=== PATIENT | female | born 1960 | race Hispanic/Latino ===

== ENCOUNTER → 2018-07-25 | Day surgery (SDC) | payer BC, MEDICARE ==
[~2018-07-25] MED LIST: Dexamethasone 20 MG/5 ML VIAL ONE; Fentanyl 100 MCG/2 ML VIAL ONE; Labetalol HCl 100 MG/20 ML VIAL ONE; Lorazepam 2 MG/ML VIAL ONE; Midazolam HCl 2 mg/2 ml Vial ONE; Morphine 2 MG/ML SYRINGE ONE; Morphine 4 MG/ML VIAL ONE; Ondansetron PF 4 MG/2 ML Vial ONE; PROPOFOL 200 MG/20 ML VIAL ONE; Succinylcholine Chloride 20 MG/ML 10 ml SYRINGE FS ONE
[2018-07-25 09:58] LABS: #Basophils 0.1 thou/uL (0.0-0.2); #Lymphocytes 2.4 thou/uL (1.20-3.40); #Monocytes 0.6 thou/uL (0.11-0.59); #Neutrophils 4.3 thou/uL (1.40-6.50); %Basophils 1.4 % (0.0-1.0); %Eosinophils 0.2 % (0.0-10.0); %Monocytes 7.7 % (0.0-10.0); %Neutrophils 58.6 % (42.0-75.0); Hemoglobin 16.6 g/dL (12.0-16.0); Mean Corpuscular HGB CONC 34.6 g/dL (32.0-36.0); Mean Corpuscular Hemoglobin 30.6 pg (27.0-31.0); Mean Corpuscular Volume 88.3 fL (78.0-98.0); Mean Platelet Volume 8.1 fL (7.4-10.4); Platelet Count 345 thou/uL (130-400); RBC Distribution Width 11.9 % (11.5-14.5); Red Blood Cell (RBC) Count 5.43 mill/uL (4.20-5.40); White Blood Cell (WBC) Count 7.3 thou/uL (4.8-10.8)
--- NOTE | 2018-07-25 10:08 | RAD ---
PORTABLE CHEST: Indications: Question foreign body in mid esophagus. Comparison: 11-12-15 FINDINGS: The lung carlos are clear. No infiltrate or vascular congestion. Linear stranding in the peripheral l eft lung appears stable. Heart and mediastinum unremarkable. IMPRESSION: No acute process identified. POS: [facility]
[2018-07-25 10:21] LABS: ALT (SGPT) 26 U/L (8-55); AST (SGOT) 29 U/L (5-34); Albumin 4.6 g/dL (3.5-5.0); Alkaline Phosphatase 106 U/L (40-150); Anion Gap 18 mmol/L (10-20); BUN (Urea Nitrogen) 9 mg/dL (9.8-20.1); Calc. Creatinine Clearance 0 mL/min (70-130); Calcium 9.9 mg/dL (7.8-10.44); Carbon Dioxide 20 mmol/L (22-29); Chloride 105 mmol/L (98-107); Estimated GFR-MDRD 71; Globulin 3.4 g/dL (2.4-3.5); Glucose 133 mg/dL (70-105); Potassium 3.6 mmol/L (3.5-5.1); Sodium 139 mmol/L (136-145)
--- NOTE | 2018-07-25 10:52 | HP ---
DATE OF CONSULTATION: 07/25/2018 REASON FOR CONSULTATION: Esophageal food bolus obstruction. HISTORY OF PRESENT ILLNESS: Gala Pate is a 57-year-old obese woman, previously seen by my colleague, Dr. Jossue Lopez. She has a history of distal esophageal stricture and multiple esophageal dilations in the past. Her last EGD was in November of 2015. She recently presented with food bolus obstruction. Followup EGD demonstrated mild benign stricture in the distal esophagus, which Dr. Lopez dilated to 18 mm. The patient states that she has been tried on multiple PPIs in the past, which did not have any efficacy and then was tried on Gaviscon for a while, but stopped that as well, so she is not on any acid suppression or heartburn medications. She says she has had progressive dysphagia for a long time. She has just been dealing with it trying to chew her food slowly, but yesterday about 5:30 p.m., which was 17 hours ago, she was eating some chicken and did not chew it enough. She feels as if the food is stuck in her mid chest. It is quite uncomfortable for her, but she is tolerating her secretions. She is quite anxious and is going to be getting some Ativan in the ER. She is hypertensive as well. No other abdominal complaints. PAST MEDICAL HISTORY: Esophageal strictures with dilation, fibromyalgia, lupus, osteoarthritis, rheumatoid arthritis, x5, hysterectomy, appendectomy, and orthopedic surgery. ALLERGIES: NO KNOWN DRUG ALLERGIES. MEDICATIONS: 1. Lorazepam. 2. Gabapentin. 3. Sulfasalazine. 4. Methotrexate. 5. Dulcolax. 6. Cyclobenzaprine. 7. Tizanidine. 8. Sertraline. REVIEW OF SYSTEMS: Full review of systems including constitutional, head, eyes, ears, nose, throat, GI, , cardiovascular, respiratory, musculoskeletal, and neurologic systems are negative except as noted in the HPI. PHYSICAL EXAMINATION: VITAL SIGNS: Blood pressure 190/141, pulse 117, and 95% oxygen saturation on room air. GENERAL: Anxious, obese 57-year-old woman, sitting up in bed, in mild distress from chest discomfort. SKIN: No jaundice. No rashes were palpable. EYES: No scleral icterus. Extraocular movements intact. ENT: Mucous membranes moist. No oral lesions. LYMPH: No submandibular or supraclavicular lymphadenopathy. THYROID: Nontender to palpation. HEART: Regular. Tachycardia. LUNGS: Clear to auscultation bilaterally. ABDOMEN: Obese. Bowel sounds present. Soft and nontender to palpation. EXTREMITIES: No peripheral edema. IMAGING AND LABORATORY STUDIES: Laboratory studies, none. Imaging studies, chest x-ray was performed, which demonstrates no acute process. ASSESSMENT AND PLAN: 1. Esophageal food bolus obstruction. 2. Chronic dysphagia. 3. History of esophageal stricture with prior dilations. This presentation is similar to her prior presentations of esophageal food bolus obstruction. We will plan to proceed with esophagogastroduodenoscopy later today. She is going to be getting some anxiety medicine in the meantime. Depending on findings, we are likely going to need to get her back on acid suppression and she will probably need followup esophagogastroduodenoscopy for esophageal dilation in the near future. Anticipate the patient will probably be able to be discharged home following the procedure. Job ID: [id number]
--- NOTE | 2018-07-25 16:31 | OP ---
DATE OF PROCEDURE: 07/25/2018 PHYSICIAN OFFICE NURSE SURGEON: None. PROCEDURE PERFORMED: EGD with foreign body removal. INDICATION: Esophageal food bolus impaction. The patient has a history of prior food bolus impactions with distal esophageal stricture and multiple dilations in the past. She has been off all acid suppression therapy for some time. MEDICATIONS: See Anesthesia record. FINDINGS: After discussion of the risks, benefits, and alternatives of the procedure, informed consent was obtained and witnessed. Preendoscopic cardiopulmonary examination was satisfactory. Time-out was performed before sedation was achieved. Sedation was achieved with Anesthesia assistance in the endoscopy unit. The patient was endotracheally intubated for airway protection. A Pentax adult upper endoscope was placed into the oropharynx and passed through the cricopharyngeus under direct visualization. The proximal esophageal mucosa appeared normal. In the mid esophagus at 25 cm from the incisors, I encountered a large food bolus, which was impacted. This appeared to be chicken, but there are also fragments of corn within the food bolus. This was quite large and quite tightly impacted. Initial attempts to pass a [place] Net around the food bolus were unsuccessful. Attempts at grabbing it with the four pronged graspers were also unsuccessful. I resorted to using the rat-tooth forceps and quite tediously debulking this large food bolus piece by small piece over the course of over 90 minutes. Eventually I was able to debulk the food bolus to the point where it slid down the remainder of the esophagus and into the stomach and in this way the food bolus was cleared. There was severe maceration in the distal esophagus, particularly from 25-30 cm, but also esophagitis beyond this to the GE junction at 40 cm from the incisors. There is diffuse erosive disease and some evidence of fibrosis, though no discrete stricture visualized. Examination of the stomach was normal. Examination of the first and second portions of the duodenum was normal. At this point the upper endoscope was completely withdrawn and the patient allowed to recover. The patient tolerated the procedure well. There were no immediate postprocedure complications. IMPRESSION: 1. Esophageal food bolus of 25-30 cm, now removed. 2. Severe esophagitis with maceration from 25-40 cm. 3. Normal stomach. 4. Normal duodenum. RECOMMENDATION: 1. Liquid diet for the next 2 days, then slowly advance to mechanical soft diet. 2. Chew food thoroughly. 3. Prevacid SoluTab 30 mg twice daily. 4. Follow up in the [facility] with Dr. Lopez or his physician ict sales assistant in the next 2 weeks. Job ID: [id number]
--- NOTE | 2018-07-25 17:54 | RAD ---
AP VIEW CHEST: 07/25/18 HISTORY: Postoperative esophageal pain. AP view chest is obtained on 07/25/18. Comparison made to previous exam from 07/25/18. AP view chest demonstrates the lungs to be well aerated. No evidence of active intrathoracic disease seen. No evidence of effusions, pneumonia or pneumothorax seen. IMPRESSION: Unremarkable AP view chest. POS: [facility]
--- NOTE | 2018-08-01 19:08 | EKG ---
Test Reason : Blood Pressure : / mmHG Vent. Rate : 119 BPM Atrial Rate : 119 BPM P-R Int : 124 ms QRS Dur : 072 ms QT Int : 334 ms P-R-T Axes : 030 014 038 degrees QTc Int : 469 ms Sinus tachycardia Abnormal ECG Confirmed by ANDRE ÁLVAREZ D.O. ([id number]), editor managing newspaper JAMAAL CHOWDHURY ([id number]) on 08/01/2018 7:07:45 PM Referred By: Confirmed By:ANDRE ÁLVAREZ D.O.
== END ==
LOC: ERS 09:05 → SDC 12:04 → ERS 12:14
PROVIDERS: ATTEND Internal Medicine
PROC: 0DC58ZZ Extirpation of Matter from Esophagus, Via Natural or Artificial Opening Endoscopic (ICD-10-PCS; principal; 2018-07-25)
DX: T18.128A Food in esophagus causing other injury, initial encounter (principal); K22.10 Ulcer of esophagus without bleeding; M79.7 Fibromyalgia; M06.9 Rheumatoid arthritis, unspecified; F41.9 Anxiety disorder, unspecified; F32.9 Major depressive disorder, single episode, unspecified; E66.9 Obesity, unspecified; Z79.899 Other long term (current) drug therapy; Z98.890 Other specified postprocedural states
CPT/HCPCS: 71045; 80053; 84484; 85025; 93005; 96374; 96375; J1100; J2060; J2250; J2270; J2405; J2704; J3010

== ENCOUNTER 2018-09-09 12:31 | Day surgery (SDC) | payer BC, MEDICARE ==
[2018-09-08 11:58] VITALS: BMI 50.4
[2018-09-09] MEDS ORDERED: PROPOFOL 200 MG/20 ML VIAL ONE (12:59)
[2018-09-09] MEDS ORDERED: Ondansetron PF 4 MG/2 ML Vial ONE ×2 (12:59→15:59)
[2018-09-09] MEDS ORDERED: MD-Gastroview 120 ML BOT ONE (14:44)
[2018-09-09] MEDS ORDERED: GASTROGRAFIN 30 ML BOT ONE (14:44)
[2018-09-09] MEDS ORDERED: Midazolam HCl 2 mg/2 ml Vial ONE ×2 (15:07→16:54)
[2018-09-09] MEDS ORDERED: Morphine 4 MG/ML VIAL ONE ×2 (16:01→16:12)
--- NOTE | 2018-09-09 16:30 | RAD ---
Exam: Abdomen one view HISTORY: severe abdominal pain, status post EGD line findings: Limited evaluation for pneumoperitoneu m on this supine projection. There is concern, consider upright radiographs. Bowel gas pattern is nonspecific. Air-filled nondistended, nondilated loops of small bowel and colon. IMPRESSION: No evidence of pneumoperitoneum on supine projection. If there is concern for free air, u pright imaging is recommended. CODE T
--- NOTE | 2018-09-09 17:01 | RAD ---
Exam: Barium swallow/esophagus: HISTORY: Severe abdominal pain status post EGD. Patient was given Gastrografin orally. No evidence for mass or ulcer. No evidence for contrast extrav asation or obstruction. IMPRESSION: No evidence for contrast extravasation or obstruction..
[2018-09-09] MEDS ORDERED: Morphine 2 MG/ML SYRINGE ONE ×2 (17:32→18:20)
[2018-09-09] MEDS ORDERED: Labetalol HCl 100 MG/20 ML VIAL ONE (17:35)
[2018-09-09] MEDS ORDERED: hydrALAZINE 20 MG/ML VIAL ONE (18:21)
--- NOTE | 2018-09-09 22:12 | OP ---
DATE OF PROCEDURE: 09/09/2018 PROCEDURE PERFORMED: Esophagogastroduodenoscopy with balloon dilatation and biopsy. PREMEDICATION: Given by Anesthesiology Department. PREPROCEDURE DIAGNOSIS: Dysphagia with recent food impaction. POSTPROCEDURE DIAGNOSIS: 1. Longitudinal furrows and circular rings involved the entire esophagus, suspicious for eosinophilic esophagitis. 2. Distal esophageal ring. 3. Normal stomach and duodenum. PROCEDURE IN DETAIL: Written consents were obtained prior to procedure. After adequate sedation, forward-viewing endoscope was advanced down the stomach under direct vision to the same portion of the duodenum. The duodenum and the bulb appeared normal. Pylorus is patent. The gastric antrum, body, fundus, and cardia all appeared normal. GE junction is noted at 40 cm. A circular ring was noted in the distal esophagus above the GE junction. In the esophagus, multiple longitudinal furrows and circular rings were noted. There was no exudates or white plaques noted. The lower esophagus was dilated with an 18 mm balloon. There was no mucosal disruption of bleeding noted. Multiple biopsies were obtained from the lower and upper esophagus. The patient tolerated the procedure well without any complication. ASSESSMENT: 1. Longitudinal furrows and circular rings in the esophagus, suspect eosinophilic esophagitis. 2. Lower esophageal ring, status post balloon dilatation to 18 mm. 3. Normal stomach and duodenum. PLAN: 1. Await biopsy results. 2. Continue pantoprazole 40 mg twice a day. Job ID: [id number]
[2018-09-10] MEDS ORDERED: Bupivacaine/Epinephrine 0.25% 30 ML VIAL ONE (07:55)
== END 2018-09-09 19:02 | disposition home or self-care (01) ==
LOC: SDC 12:31
PROVIDERS: ATTEND Internal Medicine Gastroenterology
PROC: 0DB38ZX Excision of Lower Esophagus, Via Natural or Artificial Opening Endoscopic, Diagnostic (ICD-10-PCS; principal; 2018-09-09)
PROC: 0D738ZZ Dilation of Lower Esophagus, Via Natural or Artificial Opening Endoscopic (ICD-10-PCS; principal; 2018-09-09)
PROC: 0DB18ZX Excision of Upper Esophagus, Via Natural or Artificial Opening Endoscopic, Diagnostic (ICD-10-PCS; principal; 2018-09-09)
DX: K22.2 Esophageal obstruction (principal); K21.0 Gastro-esophageal reflux disease with esophagitis; Z79.52 Long term (current) use of systemic steroids; Z79.899 Other long term (current) drug therapy; Z98.890 Other specified postprocedural states
CPT/HCPCS: 74018; 74220; 88305; 88312; 88313; 93005; 93010; J0360; J2250; J2270; J2405; Q9963

== ENCOUNTER 2019-06-29 11:52 | Outpatient (CLI) | payer BC, MEDICARE ==
--- NOTE | 2019-06-29 12:28 | RAD ---
Lumbar spine 3 views flexion and extension HISTORY: Low back pain. FINDINGS: Vertebral body heights and alignment are maintained. Osteophytosis of the lower facets. The re is limited movement change in alignment from flexion to extension with no abnormal translational motion. IMPRESSION: Mild degenerative changes lower lumbar spine.
--- NOTE | 2019-06-29 12:30 | RAD ---
Cervical spine 3 views flexion and extension HISTORY: Neck pain. FINDINGS: There is straightening of the normal lordotic curvature. Vertebral body heights are maintai lencho. Mild disc space narrowing at the C5-6 and C6-7 levels where osteophytosis is also most pronounced. Upon flexion, minimal spondylolisthesis (2 mm) occurs at the C3-4 level. No abnormalities on the exte nsion view. IMPRESSION: Degenerative changes cervical spine as detailed above.
== END 2019-06-29 11:53 | disposition home or self-care (01) ==
LOC: RAD 11:52
PROVIDERS: ATTEND Nurse Practitioner Family
DX: M54.2 Cervicalgia (principal); M54.5 Low back pain; M47.812 Spondylosis without myelopathy or radiculopathy, cervical region; M47.816 Spondylosis without myelopathy or radiculopathy, lumbar region
CPT/HCPCS: 72040; 72100

== ENCOUNTER 2019-12-04 09:34 | Emergency (ER) | payer MEDICARE ==
[2019-12-04] MEDS ORDERED: Ketorolac Tromethamine 30 MG/ML VIAL ONE (09:59)
[2019-12-04] MEDS ORDERED: Morphine 4 MG/ML VIAL ONE (09:59)
[2019-12-04] MEDS ORDERED: Cyclobenzaprine 10 MG TAB ONE (09:59)
--- NOTE | 2019-12-04 11:32 | RAD ---
SACRUM AND COCCYX 3 VIEWS: HISTORY: Fall with sacrococcygeal pain. FINDINGS: The SI joints are symmetric. They show mild arthritic change. There are no definitive signs of an a cute fracture of the sacrum or coccyx. The angulation to the sacrococcygeal region is similar to a p revious 06/29/2019 study. IMPRESSION: No acute injury. POS: [facility]
--- NOTE | 2019-12-04 11:33 | RAD ---
LEFT HIP 2 VIEWS: HISTORY: Hip pain status post fall. FINDINGS: There are no signs of fracture or dislocation. Minimal arthritic change present. IMPRESSION: No evidence of fracture. POS: [facility]
== END 2019-12-04 11:22 | disposition home or self-care (01) ==
LOC: ERS 09:34
DX: S70.02XA Contusion of left hip, initial encounter (principal); S30.0XXA Contusion of lower back and pelvis, initial encounter; F41.9 Anxiety disorder, unspecified; Z79.899 Other long term (current) drug therapy; W18.30XA Fall on same level, unspecified, initial encounter
CPT/HCPCS: 72220; 96372; J1885; J2270

== ENCOUNTER 2020-04-19 18:01 | Emergency (ER) | payer MEDICARE, BC | END 2020-04-19 20:56 | disposition left against medical advice (07) | LOC: ERS 18:01 | DX: Z53.21 Procedure and treatment not carried out due to patient leaving prior to being seen by health care provider (principal) ==

== ENCOUNTER 2020-05-17 05:59 | Day surgery (SDC) | payer MEDICARE ==
[2020-05-15 11:33] VITALS: BMI 49.8
[2020-05-17] MEDS ORDERED: Midazolam HCl 2 mg/2 ml Vial ONE (08:43)
[2020-05-17] MEDS ORDERED: Lidocaine 1% PF 5 ML VIAL ONE (09:05)
[2020-05-17] MEDS ORDERED: PROPOFOL 200 MG/20 ML VIAL ONE (09:05)
--- NOTE | 2020-05-17 09:37 | OP ---
DATE OF PROCEDURE: 05/17/2020 PRE-PROCEDURE DIAGNOSES: 1. Dysphagia. 2. Reflux. 3. Odynophagia. POSTPROCEDURE DIAGNOSES: 1. Mild gastritis. 2. Mild distal esophagitis consistent with reflux. 3. Slight esophageal ring distally, shallow. PROCEDURE PERFORMED: Esophagogastroduodenoscopy with biopsy and dilatation of distal esophageal ring. RECOMMENDATIONS: 1. Start Protonix as recommended in the office on 05/08. Patient does have medications. 2. Follow up in 6 weeks. 3. Call office for biopsy results 1 week. ANESTHESIA: TIVA. PROCEDURE IN DETAIL: Patient was informed of the risks, benefits, and possible complications of endoscopy including perforation, reaction to medication, aspiration, informed consent was obtained, and the patient was brought to the endoscopy suite, where she was sedated in gradual fashion. Once she was comfortable, a bite-block was placed in the orifice. The endoscope was advanced into the esophagus, stomach, second and third portions of the duodenum and slowly removed. Duodenum was normal. The stomach was notable for some mild nonerosive gastritis. Biopsies were obtained. There was normal distensibility and normal retroflexion. The esophagus was notable for a mild loss of vascular pattern, slight ring in the distal esophagus. The scope was able to pass easily. There was a small hiatal hernia. Biopsies taken from the distal esophagus as there was concern in the past for eosinophilic esophagitis. The esophagus was dilated, 54-Tristanian Blake dilator with minimal effect of the GE junction. The scope was removed, the patient tolerated the procedure well, no complications. Job ID: [id number]
== END 2020-05-17 09:55 | disposition home or self-care (01) ==
LOC: SDC 05:59
PROVIDERS: ATTEND Internal Medicine Gastroenterology
PROC: 0DB58ZX Excision of Esophagus, Via Natural or Artificial Opening Endoscopic, Diagnostic (ICD-10-PCS; principal; 2020-05-17)
PROC: 0D757ZZ Dilation of Esophagus, Via Natural or Artificial Opening (ICD-10-PCS; 2020-05-17)
DX: K21.01 Gastro-esophageal reflux disease with esophagitis, with bleeding (principal); K29.51 Unspecified chronic gastritis with bleeding; K22.2 Esophageal obstruction; E66.9 Obesity, unspecified; Z68.42 Body mass index [BMI] 45.0-49.9, adult; Z79.899 Other long term (current) drug therapy
CPT/HCPCS: 88305; 88312; 88313; J2250; J2704

== ENCOUNTER 2020-08-13 12:09 | Emergency (ER) | payer MEDICARE ==
[2020-08-13] MEDS ORDERED: Vancomycin 1 GM/200 ML BAG ONE (12:15)
[2020-08-13] MEDS ORDERED: Cefepime 2 GM VIAL ONE (12:15)
[2020-08-13] MEDS ORDERED: Morphine 4 MG/ML VIAL ONE (12:34)
[2020-08-13] MEDS ORDERED: Ondansetron PF 4 MG/2 ML Vial ONE (12:34)
[2020-08-13 12:45] LABS: Hemoglobin 17.3 g/dL (12.0-16.0); Mean Corpuscular HGB CONC 35.2 g/dL (32.0-36.0); Mean Corpuscular Hemoglobin 31.1 pg (27.0-31.0); Mean Corpuscular Volume 88.3 fL (78.0-98.0); Mean Platelet Volume 8.7 fL (7.4-10.4); Platelet Count 208 thou/uL (130-400); RBC Distribution Width 12.6 % (11.5-14.5); Red Blood Cell (RBC) Count 5.56 mill/uL (4.20-5.40); White Blood Cell (WBC) Count 5.1 thou/uL (4.8-10.8)
[2020-08-13] MEDS ORDERED: valACYclovir 500 MG TAB PO SCH (12:45)
[2020-08-13 12:56] LABS: ALT (SGPT) 48 U/L (8-55); AST (SGOT) 58 U/L (5-34); Albumin 4.3 g/dL (3.5-5.0); Alkaline Phosphatase 146 U/L (40-110); Anion Gap 20 mmol/L (10-20); BUN (Urea Nitrogen) 13 mg/dL (9.8-20.1); Bilirubin, Total 1.4 mg/dL (0.2-1.2); Calc. Creatinine Clearance 0 mL/min (70-130); Calcium 9.5 mg/dL (7.8-10.44); Carbon Dioxide 22 mmol/L (22-29); Chloride 99 mmol/L (98-107); Globulin 3.9 g/dL (2.4-3.5); Glucose 117 mg/dL (70-105); Potassium 3.2 mmol/L (3.5-5.1); Protein, Total 8.2 g/dL (6.0-8.3); Sodium 138 mmol/L (136-145)
[2020-08-13 13:00] LABS: Band 6 % (5-11); Lymphocytes 47 % (21-51); MDiff Complete? YES; Monocytes 12 % (0-10); Neutrophil 25 % (42-75); Platelet Morphology Comment Appears Adequate; RBC Morphology Normal; Reactive Lymphocytes 9 % (0-10)
[2020-08-13 13:11] LABS: Bacteria/HPF None Seen HPF (None Seen); Bilirubin Negative (Negative); Blood, Urine Negative (Negative); Clarity Clear (Clear); Glucose, Urine (Dipstick) Normal (Negative); Ketone, Urine 20 mg/dL (Negative); Leukocyte Negative Leu/uL (Negative); Nitrite Negative (Negative); Protein, Urine (Dipstick) 50 mg/dL (Neg-Trace); RBC/HPF 0-3 HPF (0-3); Specific Gravity, Urine 1.021 (1.002-1.036); Squamous Epithelial 0-3 HPF (0-3); Urobilinogen 3 mg/dL (Less than 2); WBC/HPF 0-3 HPF (0-3); pH, Urine 5.5 (5.0-9.0)
[2020-08-13] MEDS ORDERED: Gabapentin 300 MG CAP PO SCH (14:30)
[2020-08-13 15:05] LABS: Lactic Acid 0.8 mmol/L (0.5-2.2)
== END 2020-08-13 15:45 | disposition home or self-care (01) ==
LOC: ERS 12:09
DX: B02.9 Zoster without complications (principal); M06.9 Rheumatoid arthritis, unspecified; Z79.899 Other long term (current) drug therapy
CPT/HCPCS: 51701; 71045; 80053; 81003; 81015; 83605; 85025; 87040; 87086; 87149; 93005; 96374; 96375; J0692; J2270; J2405; J3370

== ENCOUNTER 2021-02-06 08:37 | Outpatient (CLI) | payer MEDICARE | END 2021-02-06 08:38 | disposition home or self-care (01) | LOC: BICMAMMO 08:37 | PROVIDERS: ATTEND Family Medicine | DX: Z12.31 Encounter for screening mammogram for malignant neoplasm of breast (principal); Z13.820 Encounter for screening for osteoporosis; M81.0 Age-related osteoporosis without current pathological fracture; M85.89 Other specified disorders of bone density and structure, multiple sites; Z85.41 Personal history of malignant neoplasm of cervix uteri; Z79.52 Long term (current) use of systemic steroids | CPT/HCPCS: 77063; 77067; 77080 ==

== ENCOUNTER 2021-04-04 12:01 | Inpatient (IN) | payer MEDICARE ==
[2021-04-04 12:58] LABS: #Lymphocytes 2.1 thou/uL (1.20-3.40); #Monocytes 0.4 thou/uL (0.11-0.59); %Basophils 0.6 % (0.0-1.0); %Eosinophils 0.1 % (0.0-10.0); %Lymphocytes 37.8 % (21.0-51.0); %Monocytes 7.3 % (0.0-10.0); %Neutrophils 54.2 % (42.0-75.0); Hemoglobin 15.1 g/dL (12.0-16.0); Mean Corpuscular HGB CONC 35.4 g/dL (32.0-36.0); Mean Corpuscular Hemoglobin 32.1 pg (27.0-31.0); Mean Corpuscular Volume 90.5 fL (78.0-98.0); Platelet Count 261 thou/uL (130-400); RBC Distribution Width 11.4 % (11.5-14.5); Red Blood Cell (RBC) Count 4.72 mill/uL (4.20-5.40); White Blood Cell (WBC) Count 5.5 thou/uL (4.8-10.8)
[2021-04-04 13:19] LABS: ALT (SGPT) 18 U/L (8-55); AST (SGOT) 25 U/L (5-34); Albumin 3.9 g/dL (3.5-5.0); Alkaline Phosphatase 71 U/L (40-110); Anion Gap 14 mmol/L (10-20); BUN (Urea Nitrogen) 8 mg/dL (9.8-20.1); Bilirubin, Total 0.8 mg/dL (0.2-1.2); Calc. Creatinine Clearance 0 mL/min (70-130); Calcium 9.3 mg/dL (7.8-10.44); Carbon Dioxide 24 mmol/L (22-29); Chloride 106 mmol/L (98-107); Globulin 3.1 g/dL (2.4-3.5); Glucose 97 mg/dL (70-105); Potassium 3.9 mmol/L (3.5-5.1); Sodium 140 mmol/L (136-145)
[2021-04-04 14:09] LABS: Bacteria/HPF None Seen HPF (None Seen); Bilirubin Negative (Negative); Blood, Urine Negative (Negative); Clarity Clear (Clear); Glucose, Urine (Dipstick) Normal (Negative); Ketone, Urine Trace mg/dL (Negative); Leukocyte 250 Leu/uL (Negative); Nitrite Negative (Negative); Protein, Urine (Dipstick) 20 mg/dL (Neg-Trace); RBC/HPF 0-3 HPF (0-3); Specific Gravity, Urine 1.026 (1.002-1.036); Urobilinogen Normal mg/dL (Less than 2)
[2021-04-04] MEDS ORDERED: Ondansetron PF 4 MG/2 ML Vial ONE (15:30)
[2021-04-04] MEDS ORDERED: Morphine 4 MG/ML VIAL ONE (15:30)
[2021-04-04 17:38] LABS: Troponin I Less than 0.010 ng/mL (< 0.028)
[2021-04-04 17:50] LABS: SARS-CoV-2 NAA Rapid Test Not Detected (NotDetected)
[2021-04-04] MEDS ORDERED: Acetaminophen 325 MG TAB PO PRN (18:15)
[2021-04-04] MEDS ORDERED: Ondansetron PF 4 MG/2 ML Vial IVP PRN (18:15)
[2021-04-04] MEDS ORDERED: Ondansetron ODT 4 MG TAB SL PRN (18:15)
[2021-04-04] MEDS ORDERED: Senokot S 8.6-50 MG TAB PO PRN (18:37)
[2021-04-04] MEDS ORDERED: Labetalol HCl 100 MG/20 ML VIAL SLOW IVP PRN (18:42)
[2021-04-04] MEDS ORDERED: Albuterol Sulfate 2.5 mg/3 ml Neb NEB PRN (18:43)
[2021-04-04] MEDS ORDERED: Electrolyte Replacement Protocol 1 EACH FS SCH (18:45)
[2021-04-04] MEDS ORDERED: Furosemide 20 MG/2 ML VIAL SLOW IVP SCH (18:45)
[2021-04-04] MEDS ORDERED: Enoxaparin Sodium 40 MG/0.4 ML SYRINGE SC SCH (18:45)
[2021-04-04] MEDS ORDERED: Gabapentin 300 MG CAP PO PRN (18:48)
[2021-04-04] MEDS ORDERED: Acetaminophen/Codeine 30-300mg Tablet PO PRN (18:50)
[2021-04-04 18:59] VITALS: BMI 51.5
[2021-04-04] MEDS ORDERED: FLU VACC QS2021-22(6MOS UP)/PF 60 MCG/0.5 ML SYRINGE IM ONE (19:15)
[2021-04-04] MEDS ORDERED: Prevnar 13-Val Conj/PF 0.5 ML SYRINGE IM ONE (19:30)
[2021-04-04 20:01] LABS: Magnesium 1.8 mg/dL (1.6-2.6)
[2021-04-04 20:05] LABS: Troponin I Less than 0.010 ng/mL (< 0.028)
[2021-04-04] MEDS ORDERED: Carvedilol 3.125 MG TAB PO SCH (20:15)
[2021-04-04] MEDS: cefTRIAXone\\ROCEPHIN 1 GM in Sodium Chloride 0.9% 100 ML IVPB SCH (20:19)
[2021-04-04] MEDS: Benzonatate 100 MG CAP PO PRN (20:20)
[2021-04-04] MEDS: tiZANidine HCl 4 MG TAB PO SCH (20:20)
[2021-04-04] MEDS: Temazepam 15 MG CAP PO PRN (20:43)
[2021-04-04] MEDS ORDERED: Acetaminophen/Codeine 30-300mg Tablet PO SCH (22:45)
[2021-04-04] MEDS ORDERED: Magnesium 2 GM/50 ML 2 GM in Premix Bag 1 BAG IVPB SCH (23:15)
[2021-04-05] MEDS: Acetaminophen/Codeine 30-300mg Tablet PO PRN ×4 (04:17→22:50)
[2021-04-05] MEDS: Benzonatate 100 MG CAP PO PRN ×2 (04:17→20:09)
[2021-04-05 05:00] LABS: #Lymphocytes 1.7 thou/uL (1.20-3.40); #Monocytes 0.5 thou/uL (0.11-0.59); #Neutrophils 2.3 thou/uL (1.40-6.50); %Basophils 0.6 % (0.0-1.0); %Eosinophils 0.3 % (0.0-10.0); %Lymphocytes 37.6 % (21.0-51.0); %Monocytes 11.1 % (0.0-10.0); %Neutrophils 50.4 % (42.0-75.0); Hemoglobin 15.1 g/dL (12.0-16.0); Mean Corpuscular HGB CONC 33.1 g/dL (32.0-36.0); Mean Corpuscular Hemoglobin 30.3 pg (27.0-31.0); Mean Corpuscular Volume 91.6 fL (78.0-98.0); Mean Platelet Volume 8.2 fL (7.4-10.4); Platelet Count 286 thou/uL (130-400); RBC Distribution Width 11.6 % (11.5-14.5); Red Blood Cell (RBC) Count 4.99 mill/uL (4.20-5.40); White Blood Cell (WBC) Count 4.6 thou/uL (4.8-10.8)
[2021-04-05 05:18] LABS: Anion Gap 12 mmol/L (10-20); BUN (Urea Nitrogen) 9 mg/dL (9.8-20.1); Calc. Creatinine Clearance 163 mL/min (70-130); Calcium 9.8 mg/dL (7.8-10.44); Carbon Dioxide 30 mmol/L (22-29); Cardiac Risk 3.4 (Less than 4.5); Chloride 102 mmol/L (98-107); Cholesterol 171 mg/dl (< 200 Desired); Glucose 115 mg/dL (70-105); HDL Cholesterol 50 mg/dL (>60 Neg Risk); LDL Cholesterol, Calculated 82 mg/dL; Magnesium 2.4 mg/dL (1.6-2.6); Phosphorus 5.6 mg/dL (2.3-4.7); Potassium 3.8 mmol/L (3.5-5.1); Sodium 140 mmol/L (136-145); Triglycerides 196 mg/dL (Less than 150)
[2021-04-05 05:46] LABS: Hemoglobin A1c 5.3 % (4.0-6.0)
[2021-04-05] MEDS ORDERED: Carvedilol 3.125 MG TAB PO SCH (08:00)
[2021-04-05] MEDS: Carvedilol 6.25 MG TAB PO SCH ×2 (08:36→16:07)
[2021-04-05] MEDS: lamoTRIgine 100 MG TAB PO SCH (08:36)
[2021-04-05] MEDS: Aspirin 81 mg Enteric Coated Tablet PO SCH (08:36)
[2021-04-05] MEDS: tiZANidine HCl 4 MG TAB PO SCH ×3 (08:37→20:10)
[2021-04-05] MEDS: Enoxaparin Sodium 40 MG/0.4 ML SYRINGE SC SCH (08:37)
[2021-04-05] MEDS: Furosemide 20 MG/2 ML VIAL SLOW IVP SCH (08:39)
[2021-04-05] MEDS: DULoxetine 60 MG CAP PO SCH (08:42)
[2021-04-05] MEDS: Fluticasone Propionate Nasal Spray 16 gm Bottle NASAL SCH (10:26)
[2021-04-05] MEDS ORDERED: Triple Antibiotic Ointment 15 GM TUBE TOP SCH (17:57)
[2021-04-05] MEDS: cefTRIAXone\\ROCEPHIN 1 GM in Sodium Chloride 0.9% 100 ML IVPB SCH (20:09)
[2021-04-05] MEDS: Temazepam 15 MG CAP PO PRN (20:09)
[2021-04-05] MEDS: Triple Antibiotic Ointment 30 GM TUBE TOP SCH (21:16)
[2021-04-05] MEDS: Nystatin Powder 15 GM BOT TOP PRN (21:20)
[2021-04-06] MEDS ORDERED: Ibuprofen 800 MG TAB PO SCH (03:45)
[2021-04-06] MEDS ORDERED: Guaifenesin DM 100-10/5 ML UDCUP PO PRN (04:12)
[2021-04-06 05:28] LABS: Anion Gap 10 mmol/L (10-20); BUN (Urea Nitrogen) 9 mg/dL (9.8-20.1); Calc. Creatinine Clearance 171 mL/min (70-130); Calcium 9.6 mg/dL (7.8-10.44); Carbon Dioxide 29 mmol/L (22-29); Chloride 103 mmol/L (98-107); Glucose 118 mg/dL (70-105); Potassium 3.6 mmol/L (3.5-5.1); Sodium 138 mmol/L (136-145)
[2021-04-06 05:30] LABS: Hemoglobin 15.1 g/dL (12.0-16.0); Lymphocytes 52 % (21-51); MDiff Complete? YES; Mean Corpuscular HGB CONC 33.7 g/dL (32.0-36.0); Mean Corpuscular Hemoglobin 30.9 pg (27.0-31.0); Mean Corpuscular Volume 91.8 fL (78.0-98.0); Mean Platelet Volume 8.3 fL (7.4-10.4); Monocytes 2 % (0-10); Neutrophil 34 % (42-75); Platelet Count 265 thou/uL (130-400); Platelet Morphology Comment Appears Adequate; RBC Distribution Width 11.5 % (11.5-14.5); RBC Morphology Normal; Reactive Lymphocytes 12 % (0-10); Red Blood Cell (RBC) Count 4.87 mill/uL (4.20-5.40); White Blood Cell (WBC) Count 4.3 thou/uL (4.8-10.8)
[2021-04-06] MEDS: Acetaminophen/Codeine 30-300mg Tablet PO PRN (07:19)
[2021-04-06 08:17] VITALS: BP 155/79; TEMP 98.3
[2021-04-06] MEDS: Carvedilol 6.25 MG TAB PO SCH (09:57)
[2021-04-06] MEDS: Aspirin 81 mg Enteric Coated Tablet PO SCH (09:59)
[2021-04-06] MEDS: Furosemide 20 MG/2 ML VIAL SLOW IVP SCH (09:59)
[2021-04-06] MEDS: lamoTRIgine 100 MG TAB PO SCH (09:59)
[2021-04-06] MEDS: DULoxetine 60 MG CAP PO SCH (09:59)
[2021-04-06] MEDS: Enoxaparin Sodium 40 MG/0.4 ML SYRINGE SC SCH (10:00)
[2021-04-06] MEDS: Triple Antibiotic Ointment 30 GM TUBE TOP SCH (10:05)
[2021-04-06] MEDS: Fluticasone Propionate Nasal Spray 16 gm Bottle NASAL SCH (10:05)
[2021-04-06] MEDS: tiZANidine HCl 4 MG TAB PO SCH (10:06)
[2021-04-06] MEDS: Nystatin Powder 15 GM BOT TOP PRN (10:08)
== END 2021-04-06 10:53 | disposition home or self-care (01) | DRG 291 ==
LOC: ERS 12:01 → 2SW 16:47 → OBSVTOIN 04-05 11:42
PROVIDERS: ADMIT Internal Medicine; ATTEND Internal Medicine
DX: I11.0 Hypertensive heart disease with heart failure (principal); J96.01 Acute respiratory failure with hypoxia; Z20.822 Contact with and (suspected) exposure to COVID-19; I50.31 Acute diastolic (congestive) heart failure; F33.1 Major depressive disorder, recurrent, moderate; N39.0 Urinary tract infection, site not specified; R29.6 Repeated falls; M79.7 Fibromyalgia; M06.9 Rheumatoid arthritis, unspecified; E66.01 Morbid (severe) obesity due to excess calories; K21.9 Gastro-esophageal reflux disease without esophagitis; F41.9 Anxiety disorder, unspecified; I16.0 Hypertensive urgency; G89.29 Other chronic pain; Z68.43 Body mass index [BMI] 50.0-59.9, adult; Z79.899 Other long term (current) drug therapy; Z90.49 Acquired absence of other specified parts of digestive tract; Z90.710 Acquired absence of both cervix and uterus; Z80.49 Family history of malignant neoplasm of other genital organs; Z82.49 Family history of ischemic heart disease and other diseases of the circulatory system; Z83.79 Family history of other diseases of the digestive system; Z85.42 Personal history of malignant neoplasm of other parts of uterus; Z85.41 Personal history of malignant neoplasm of cervix uteri; Z92.21 Personal history of antineoplastic chemotherapy; Z92.3 Personal history of irradiation
CPT/HCPCS: 36415; 71045; 71275; 80048; 80053; 80061; 81003; 81015; 83036; 83735; 83880; 84100; 84443; 84484; 85025; 87070; 87205; 87633; 93005; 93306; 93970; J0696; J1650; J1940; J2270; J2405; J3475; J3490; U0002